=== PATIENT | female | born 1985 | race American Indian/Alaskan Native ===

== ENCOUNTER 2018-10-12 21:01 | Observation (INO) | payer OTHER ==
[2018-10-12] MEDS ORDERED: Sodium Chloride 0.9% 1,000 ML IV STA ×3 (21:54→23:43)
--- NOTE | 2018-10-12 21:57 | ED PDOC ---
Arrival/HPI <Oskar De León - Last Filed: 10/12/18 22:22> - General Historian: Patient - History of Present Illness Narrative History of Present Illness (Text): 10/12/18 21:55 Criselda Pandey is a 33 year old female, with no significant past medical history, who presents to the Emergency department complaining of 1 week history of left ear pain with left-sided frontal headache, which started this morning. Patient states the headache is gradually progressing, worsened with light, and improved when in the dark. Patient states she did not take any medication at home. Patient also reports 6 episodes of vomiting and occasional cough. Patient denies any shortness of breath and but states her chest feels a little tight. Patient also denies any abdominal pain, urinary symptoms, back pain, neck pain, or any other complaints. Symptom Onset: Gradual Symptom Course: Unchanged Activities at Onset: Light Context: Home <Briseida Hall - Last Filed: 10/13/18 01:07> - General Chief Complaint: Flu-like Symptoms Time Seen by Provider: 10/12/18 21:09 Past Medical History - Provider Review Nursing Documentation Reviewed: Yes - Psychiatric Hx Substance Use: No <Briseida Hall - Last Filed: 10/13/18 01:07> Family/Social History - Physician Review Nursing Documentation Reviewed: Yes Family/Social History: Unknown Family HX Smoking Status: Never Smoked Hx Alcohol Use: No Hx Substance Use: No <Briseida Hall - Last Filed: 10/13/18 01:07> Allergies/Home Meds <Oskar De León - Last Filed: 10/12/18 22:22> <Briseida Hall - Last Filed: 10/13/18 01:07> Allergies/Adverse Reactions: Allergies latex Allergy (Verified 10/12/18 21:31) URTICARIA Home Medications: Home Meds Medication Instructions Recorded Confirmed No Known Home Med 10/12/18 10/12/18 Review of Systems - Physician Review All systems were reviewed & negative as marked: Yes - Review of Systems Constitutional: Normal Eyes: Normal ENT: Sinus Congestion (+nasal congestion), Other (+left ear pain) Respiratory: Cough. absent: SOB Gastrointestinal: Normal. absent: Abdominal Pain, Diarrhea, Nausea, Vomiting Genitourinary Female: Normal. absent: Dysuria, Frequency, Hematuria, Urine Output Changes Musculoskeletal: Normal. absent: Back Pain, Neck Pain Skin: Normal. absent: Rash Neurological: Headache. absent: Dizziness Endocrine: Normal Hemo/Lymphatic: Normal Psychiatric: Normal <IsabelJulioBriseida T - Last Filed: 10/13/18 01:07> Physical Exam Vital Signs Temp Pulse Resp Pulse Ox 10/12/18 21:27 98.1 F 74 16 100 <Oskar De León - Last Filed: 10/12/18 22:22> Vital Signs Reviewed: Yes Vital Signs Temp Pulse Resp Pulse Ox 10/12/18 21:27 98.1 F 74 16 100 Temperature: Afebrile Blood Pressure: Normal Pulse: Regular Respiratory Rate: Normal Appearance: Positive for: Well-Appearing, Non-Toxic, Comfortable Pain Distress: None Mental Status: Positive for: Alert and Oriented X 3 - Systems Exam Head: Present: Atraumatic, Normocephalic Pupils: Present: PERRL Extroacular Muscles: Present: EOMI Conjunctiva: Present: Normal Ears: Present: Normal, NORMAL TM, Normal Canal. No: Erythema, TM Bulging, Fluid, TM Perf Mouth: Present: Moist Mucous Membranes, Normal Lips, Normal Tounge. No: Drooling, Trismus Pharnyx: Present: Other (Post-nasal drip). No: ERYTHEMA, EXUDATE, TONSILS ENLARGED, Peritonsilar Swelling, Uvular Deviation, Muffled/Hoarse Voice, S trider, Soft Palate/Uvular Edema Nose (External): Present: Atraumatic Nose (Internal): Present: Other (Nasal congestion) Neck: Present: Normal Range of Motion. No: Meningeal Signs, MIDLINE TENDERNESS, Paraspinal Tenderness, Lymphadenopathy Respiratory/Chest: Present: Clear to Auscultation, Good Air Exchange. No: Respiratory Distress, Accessory Muscle Use Cardiovascular: Present: Regular Rate and Rhythm, Normal S1, S2. No: Murmurs Abdomen: No: Tenderness, Distention, Peritoneal Signs, Rebound, Guarding Upper Extremity: Present: Normal Inspection. No: Cyanosis, Edema Lower Extremity: Present: Normal Inspection. No: Edema Neurological: Present: GCS=15, Speech Normal, Gait Normal Skin: Present: Warm, Dry, Normal Color. No: Rashes Lymphatic: No: Cervical Adenopathy Psychiatric: Present: Alert, Oriented x 3 <Azoia,Briseida T - Last Filed: 10/13/18 01:07> Medical Decision Making - Lab Interpretations Lab Results: Urine Color Yellow (YELLOW) 10/12/18 20:00 Urine Appearance Sl cloudy (CLEAR) 10/12/18 20:00 Urine pH 6.0 (4.7-8.0) 10/12/18 20:00 Ur Specific Bigelow >= 1.030 (1.005-1.035) 10/12/18 20:00 Urine Protein Negative mg/dL (<30 mg/dL) 10/12/18 20:00 Urine Glucose (UA) Negative mg/dL (NEGATIVE) 10/12/18 20:00 Urine Ketones Negative mg/dL (NEGATIVE) 10/12/18 20:00 Urine Blood Negative (NEGATIVE) 10/12/18 20:00 Urine Nitrate Negative (NEGATIVE) 10/12/18 20:00 Urine Bilirubin Negative (NEGATIVE) 10/12/18 20:00 Urine Urobilinogen 0.2 E.U./dL (<1 E.U./dL) 10/12/18 20:00 Ur Leukocyte Esterase Trace Keysha/uL (NEGATIVE) H 10/12/18 20:00 Urine RBC None /hpf (0-2) 10/12/18 20:00 Urine WBC 5 - 10 /hpf (0-6) H 10/12/18 20:00 Ur Epithelial Cells 10 - 12 /hpf (0-5) H 10/12/18 20:00 Urine Bacteria Mod /hpf (NONE) 10/12/18 20:00 - Medication Orders Current Medication Orders: Sodium Chloride (Sodium Chloride 0.9%) 1,000 mls @ 999 mls/hr IV .Q1H1M STA Stop: 10/12/18 22:54 Last Admin: 10/12/18 22:10 Dose: 999 mls/hr eMAR Start Stop Document 10/12/18 22:10 THEA (Rec: 10/12/18 22:10 THEA [id number]) Intravenous Solution Start Date 10/12/18 Start Time 22:10 End Date 10/12/18 End time 23:11 Total Infusion Time 61 Discontinued Medications Ketorolac Tromethamine (Toradol) 30 mg IVP STAT STA Stop: 10/12/18 22:10 Metoclopramide HCl (Reglan) 10 mg IVP STAT STA Stop: 10/12/18 22:10 <Oskar De León - Last Filed: 10/12/18 22:22> ED Course and Treatment: 10/12/18 21:55 Impression: 33 year old female complaining of 1 week history of left ear pain, nasal congestion, left-sided frontal headache, occasional cough, and some chest tightness. Plan: -- EKG -- Rapid influenza A/B -- CBC -- CMP -- Cardiac iso -- Urinalysis -- IV fluids -- Reassess and disposition --urine hcg; negative Progress Notes: Pt was offered CT Head, but the patient refused stating that she doesnt want the radiation. EKG: NSR sinus rhythm at 73 bpm normal axis normal intervals no ST elevations UA; + leukocytes, + bacteria, many epithelials. No urinary symptoms. rapid flu; negative cbc; wnl cmp; wnl trop; wnl pt was given toradol and reglan; after reglan patient felt anxious. pt refused benadryl. asked for her IV to be pulled. pt reassessment; pt is feeling better. vitals stable. pt is resting comfortably reading a book in the ER. pt was found to have elevated CPK in er; advised patient of rhabdomyolysis and increased risk of kidney failure or possible if not treated. Patient states she wants to call her doctor and discuss the elevated CPK with her physician. after speaking to her primary care physician she has decided to stay in the hospital. An additional liter of normal saline was given IV bolus and the patient was started on 100 mL of per hour of normal saline. pt reassessment; pt is non toxic well appearing; no distress. alert and oriented. Case was discussed with Dr. Nolen accepts observational status admission for rhabdomyolysis all aspects of this case were discussed the attending of record. impression; rhabdomyolysis admit med surg Reassessment Condition: Re-examined, Improved <Briseida Hall - Last Filed: 10/13/18 01:07> - PA / BRIM RAISER / Resident Statement SWATI has reviewed & agrees with the documentation as recorded. SWATI has examined the patient and agrees with the treatment plan. <Oskar De León - Last Filed: 10/12/18 22:22> - Scribe Statement The provider has reviewed the documentation as recorded by the Nupur Jackson Provider Scribe Attestation: All medical record entries made by the Scribe were at my direction and personally dictated by me. I have reviewed the chart and agree that the record accurately reflects my personal performance of the history, physical exam, medical decision making, and the department course for this patient. I have also personally directed, reviewed, and agree with the discharge instructions and disposition. <Briseida Hall - Last Filed: 10/13/18 01:07> Disposition/Present on Arrival <Oskar De León - Last Filed: 10/12/18 22:22> - Present on Arrival Any Indicators Present on Arrival: No History of DVT/PE: No History of Uncontrolled Diabetes: No Urinary Catheter: No History of Decub. Ulcer: No History Surgical Site Infection Following: None - Disposition Have Diagnosis and Disposition been Completed?: Yes Disposition Time: 23:30 Patient Plan: Admission <Briseida Hall - Last Filed: 10/13/18 01:07> - Disposition Diagnosis: Rhabdomyolysis Disposition: HOSPITALIZED Patient Problems: Current Active Problems Problem Status Onset Rhabdomyolysis Acute Condition: GOOD
[2018-10-12 22:13] LABS: BASO # 0.02 K/mm3 (0.0-2.0); BASO % 0.3 % (0.0-3.0); EOS # 0.1 (0.0-0.7); EOS % 1.1 % (1.5-5.0); GRAN # 4.3 (1.4-6.5); GRAN % 54.2 % (50.0-68.0); HEMOGLOBIN 11.1 g/dL (12.0-16.0); LYMPH # 3.1 (1.2-3.4); LYMPH % 38.9 % (22.0-35.0); MEAN CELL VOLUME 83.1 fl (80.0-105.0); MEAN CORPUSCULAR HEMOGLOBIN 27.5 pg (25.0-35.0); MEAN CORPUSCULAR HGB CONC 33.1 g/dl (31.0-37.0); MONO # 0.4 (0.1-0.6); MONO % 5.5 % (1.0-6.0); RBC 4.03 10^6/uL (3.5-6.1); URINE APPEARANCE SL CLOUDY (CLEAR); URINE BILIRUBIN NEGATIVE (NEGATIVE); URINE BLOOD NEGATIVE (NEGATIVE); URINE COLOR YELLOW (YELLOW); URINE GLUCOSE (UA) NEGATIVE (NEGATIVE); URINE LEUKOCYTE ESTERASE TRACE Leu/uL (NEGATIVE); URINE PROTEIN NEGATIVE mg/dL (<30 mg/dL); URINE UROBILINOGEN 0.2 E.U./dL (<1 E.U./dL); WHITE BLOOD COUNT 7.9 10^3/uL (4.5-11.0)
[2018-10-12 22:15] LABS: URINE BACTERIA MOD /hpf
[2018-10-12 22:30] LABS: ALB/GLOB RATIO 1.4 (1.1-1.8); ALBUMIN 3.9 g/dL (3.0-4.8); ALT/SGPT 38 U/L (7-56); AST/SGOT 85 U/L (14-36); BLOOD UREA NITROGEN 15 mg/dL (7-21); GFR NON-AFRICAN AMERICAN > 60
[2018-10-12] MEDS ORDERED: DiphenhydrAMINE 50 mg/ml Inj IVP STA (22:37)
[2018-10-12 22:47] LABS: TROPONIN I < 0.01 ng/mL
[2018-10-12 23:24] LABS: CK-MB 2.6 ng/mL (0.0-3.6)
[2018-10-12 23:33] LABS: LIPASE 257 U/L (23-300)
[2018-10-13 00:26] VITALS: BMI 24.4
[2018-10-13 01:15] VITALS: PULSE 73
[2018-10-13 07:50] VITALS: BP 93/56; RESP 19; TEMP 98.1; O2SAT 97
[2018-10-13 09:30] LABS: ALB/GLOB RATIO 1.3 (1.1-1.8); ALT/SGPT 40 U/L (7-56); AST/SGOT 89 U/L (14-36); BLOOD UREA NITROGEN 9 mg/dL (7-21); GFR NON-AFRICAN AMERICAN > 60
[2018-10-13] MEDS ORDERED: Sodium Chloride 0.9% 1,000 ML IV SCH (10:30)
[2018-10-13 10:36] LABS: CK-MB 2.4 ng/mL (0.0-3.6)
--- NOTE | 2018-10-13 13:24 | CP.PCM.CON ---
History of Present Illness - History of Present Illness History of Present Illness: Nephrology Consultation Note: Assessment: Stable mild rhabdomyolysis likely due to recent exercise dehydration as evident by concentrated urine anemia likely iron def Plan No acute need for renal replacement therapy at this time. renal function stable and normal. Maintain hemodynamics stable. Avoid hypotension. Monitor Input/Output, daily weights and renal function with basic metabolic panel, CPK while in hospital so far CPK level stable and renal function normal. pt asymptomatic, able to take PO. can be d/c home from renal perspective. recommend rest, increased fluid intake and repeat labs within few days as outpt Dose meds/antibiotics for normal GFR. Further work up/management as per primary team Thanks for allowing me to participate in care of your patient. Will follow patient with you. Please call if any Qs. had d/w team Dr Jeffrey Mercado Office: [phone] Chief Complaint; rhabdomyolysis Reason for consult: elevated CPK HPI: Pt is a 33 F without any known medical hx , not on any meds presented with complaints of body aches after recent physical exercise regimen she had started. also episodes of vomitting yesterday with decreased oral intake. had headache also which has resolved Denies OTC/herbal meds or NSAIDs No recent iodinated contrast exposure. No obvious episodes of low BP. pt feels well now, no complaints, usual health no hx of rhabdo in past non smoker no etoh or drugs. works as paeds RN in [employer] ROS: Cardiovascular: No chest pain. Pulmonary: No shortness of breath Gastrointestinal: denies abdominal pain No nausea. No vomiting. Genitourinary: No pain while urinating. Denies blood in urine. All other negative except as mentioned in HPI Physical Examination: General Appearance: Comfortable, in no acute respiratory distress, co-operative . Vitals reviewed and noted as below Head; Atraumatic, normocephalic ENT: no ulcers no thrush. Tongue is midline. Oropharynx: no rash or ulcers. EYES: Pupils are equal, round and reactive to light accommodation. Eye muscles and extraocular movement intact. Sclera is anicteric. Neck; supple no lymphadenopathy, no thyromegaly or bruit Lungs: Normal respiratory rate/effort. Breath sounds bilateral equal and clear Heart: Normal rate. s1s2 normal. No rub or gallop. Extremities: no edema. No varicose veins Neurological: Patient is alert, awake and oriented to person, place and time. No focal deficit. Strength bilateral appropriate and equal Skin: Warm and dry. Normal turgor. No rash. Palpitation: Normal elasticity for age Abdomen: Abdomen is soft. Bowel sounds +. There is no abdominal tenderness, no guarding/rigidity no organomegaly Psych: normal insight and normal affect/mood MSK: no joint tenderness or swelling. Digits and nails normal, no deformity : kidney or bladder not palpable Labs/imaging reviewed. Past medical history, past surgical history, family history, social history, allergy reviewed and noted as below Family hx: no hx of CKD. Rest non-contributory Past Patient History - Past Social History Smoking Status: Never Smoked - CARDIAC Hx Cardiac Disorders: No - PULMONARY Hx Respiratory Disorders: No - NEUROLOGICAL Hx Neurological Disorder: No - HEENT Hx HEENT Problems: No - RENAL Hx Chronic Kidney Disease: No - ENDOCRINE/METABOLIC Hx Endocrine Disorders: No - HEMATOLOGICAL/ONCOLOGICAL Hx Blood Disorders: No - INTEGUMENTARY Hx Dermatological Problems: No - MUSCULOSKELETAL/RHEUMATOLOGICAL Hx Falls: No - GASTROINTESTINAL Hx Gastrointestinal Disorders: No - GENITOURINARY/GYNECOLOGICAL Hx Genitourinary Disorders: No - PSYCHIATRIC Hx Substance Use: No - SURGICAL HISTORY Hx Surgeries: Yes (liposuction, ) Meds Allergies/Adverse Reactions: Allergies Allergy/AdvReac Type Severity Reaction Status Date / Time latex Allergy URTICARIA Verified 10/12/18 21:31 - Medications Medications: Current Medications Sodium Chloride (Sodium Chloride 0.9%) 1,000 mls @ 150 mls/hr IV .Q6H40M CARIN Last Admin: 10/13/18 10:32 Dose: 150 mls/hr Results - Vital Signs Recent Vital Signs: Last Vital Signs Temp 98.1 F 10/13/18 07:49 Pulse 73 10/13/18 07:49 Resp 19 10/13/18 07:49 BP 93/56 L 10/13/18 07:49 Pulse Ox 97 10/13/18 07:49 - Labs Result Diagrams: 10/12/18 20:00 10/13/18 08:40 Labs: Laboratory Results - last 24 hr 10/12/18 10/12/18 10/12/18 20:00 20:00 20:00 WBC RBC Hgb Hct MCV MCH MCHC RDW Plt Count MPV Gran % Lymph % (Auto) Perkins % (Auto) Eos % (Auto) Baso % (Auto) Gran # Lymph # (Auto) Perkins # (Auto) Eos # (Auto) Baso # (Auto) Sodium 137 Potassium 4.2 Chloride 108 H Carbon Dioxide 24 Anion Gap 9 L BUN 15 Creatinine 0.7 Est GFR ( Amer) > 60 Est GFR (Non-Af Amer) > 60 Random Glucose 94 Calcium 9.0 Total Bilirubin 0.4 AST 85 H ALT 38 Alkaline Phosphatase 54 Lactate Dehydrogenase 675 Total Creatine Kinase 5471 H CK-MB (CK-2) 2.6 CK-MB (CK-2) % Cancelled Troponin I < 0.01 Total Protein 6.7 Albumin 3.9 Globulin 2.8 Albumin/Globulin Ratio 1.4 Lipase 257 Urine Color Yellow Urine Appearance Sl cloudy Urine pH 6.0 Ur Specific Gobles >= 1.030 Urine Protein Negative Urine Glucose (UA) Negative Urine Ketones Negative Urine Blood Negative Urine Nitrate Negative Urine Bilirubin Negative Urine Urobilinogen 0.2 Ur Leukocyte Esterase Trace H Urine RBC None Urine WBC 5 - 10 H Ur Epithelial Cells 10 - 12 H Urine Bacteria Mod Influenza Typ A,B (EIA) Negative for flu a/b 10/12/18 10/13/18 20:00 08:40 WBC 7.9 RBC 4.03 Hgb 11.1 L Hct 33.5 L MCV 83.1 MCH 27.5 MCHC 33.1 RDW 14.0 Plt Count 262 MPV 10.0 Gran % 54.2 Lymph % (Auto) 38.9 H Perkins % (Auto) 5.5 Eos % (Auto) 1.1 L Baso % (Auto) 0.3 Gran # 4.30 Lymph # (Auto) 3.1 Perkins # (Auto) 0.4 Eos # (Auto) 0.1 Baso # (Auto) 0.02 Sodium 136 Potassium 4.3 Chloride 108 H Carbon Dioxide 22 Anion Gap 11 BUN 9 Creatinine 0.6 L Est GFR ( Amer) > 60 Est GFR (Non-Af Amer) > 60 Random Glucose 93 Calcium 9.0 Total Bilirubin 0.4 AST 89 H ALT 40 Alkaline Phosphatase 60 Lactate Dehydrogenase Total Creatine Kinase 5018 H CK-MB (CK-2) 2.4 CK-MB (CK-2) % Cancelled Troponin I Total Protein 7.0 Albumin 4.0 Globulin 3.0 Albumin/Globulin Ratio 1.3 Lipase Urine Color Urine Appearance Urine pH Ur Specific Gobles Urine Protein Urine Glucose (UA) Urine Ketones Urine Blood Urine Nitrate Urine Bilirubin Urine Urobilinogen Ur Leukocyte Esterase Urine RBC Urine WBC Ur Epithelial Cells Urine Bacteria Influenza Typ A,B (EIA)
--- NOTE | 2018-10-13 22:19 | CARD ---
APPROVED REPORT Date of service: 10/12/2018 EKG Measurement Heart [id number] <Conclusion> Normal sinus rhythm Low voltage QRS Borderline ECG
--- NOTE | 2018-10-14 01:32 | HP ---
DATE OF EXAM: 10/13/2018 HISTORY OF PRESENT ILLNESS: A 33-year-old female who came in, history was taken from the patient herself, body aches, pains all over and also history of exercise heavily after a long period of not exercising. She states the body hurts. She also mentions that she did have some nasal congestions and some sinus headaches which seems controlled with medications and feel better already with it. She denies any fever, any chest pain, any short of breath. The patient was evaluated in the emergency room and it was found that CPK 5471. The patient was admitted for that particular reason with rhabdomyolysis for observation. PAST MEDICAL HISTORY: No other medical problems. SOCIAL HISTORY: The patient is , with children. She does not smoke or drink. 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 REVIEW OF SYSTEMS: She does not complain of any pain. When I saw her, she denied any pain, any back pain, shoulder pain just only recent history of muscle pains all over. Denied any fever. Denied chest pain, nausea, vomiting, or diarrhea. No chills. No other complaints. No burning with urination. FAMILY HISTORY: Noncontributory. PHYSICAL EXAMINATION: VITAL SIGNS: Temperature is 98, heart rate is 73 and regular, blood pressure is 109/74, respirations 18 and unlabored, and saturation on room air 100%. HEAD AND NECK: Normal. No JVD. No thyromegaly. CHEST: Clear bilaterally. No wheezing. CARDIAC: First sound and second sound normal. No murmur, rub, or gallop. ABDOMEN: Soft and nontender. EXTREMITIES: No edema. No calf tenderness. Good pulses. NEUROLOGIC: The patient is awake, alert, and oriented x3. Moves all extremities. She is sitting comfortably, playing with the computer and has a book in front of her. LABORATORY STUDY: Shows the following; sodium 137, potassium 4.2, chloride 107, bicarb 24, BUN 15, and creatinine 0.7. Liver function test seems normal except AST slightly elevated at 85. Total creatinine kinase 5471. CBC; white count 7.9, hemoglobin 11.1, hematocrit 33.5, and platelets 262. UA shows 5 to 10 WBCs and a lot epithelial cells 10 to 12. Serology for influenza was negative. IMPRESSION AND PLAN: Acute rhabdomyolysis, mild. We will admit the patient for observation. She got already few liters of IV fluid. We will maintain IV fluid 150 mL per hour. The patient tried to with IV. We recommend her to hold off on that and she wants to go home. Repeat CPK went down. The patient is encouraged if she wants to go home she has to drink p.o. fluids. I gave her my number, my card to follow up as outpatient. Consultation by wet suit gluer, Dr. Jeffrey Mercado who has seen the patient and he agreed. I recommend to discharge the patient on p.o. fluids. We will continue followup as outpatient. ADMITTING DIAGNOSIS: Acute rhabdomyolysis and plan IV fluids. Same time, the patient for observation, was discharged home to be followed up as outpatient. Marvin Nolen MD
== END 2018-10-13 14:40 | disposition home or self-care (01) ==
LOC: ED 21:01 → ERH 23:46 → 3RNO 10-13 00:15
PROVIDERS: ADMIT Internal Medicine; ATTEND Internal Medicine
DX: M62.82 Rhabdomyolysis (principal); E86.0 Dehydration; D50.9 Iron deficiency anemia, unspecified; Z91.040 Latex allergy status
CPT/HCPCS: 36415; 80053; 81001; 81025; 82550; 82553; 83615; 83690; 84484; 85025; 87086; 87804; 93005; 96360; 96361; 96374; 96375; 99285; G0378; J1885; J2765; J7030; J7040

== ENCOUNTER 2018-12-28 18:11 | Emergency (ER) | payer BC, OTHER ==
[2018-12-28 18:12] VITALS: BMI 24.4
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
[2018-12-28 18:58] VITALS: BP 116/76; PULSE 82; RESP 16; TEMP 99.2; O2SAT 98
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
== END 2018-12-28 21:33 | disposition left against medical advice (07) ==
LOC: ED 18:11
DX: S02.5XXA Fracture of tooth (traumatic), initial encounter for closed fracture (principal); S01.511A Laceration without foreign body of lip, initial encounter; S50.12XA Contusion of left forearm, initial encounter; S60.211A Contusion of right wrist, initial encounter; S70.11XA Contusion of right thigh, initial encounter; Y04.0XXA Assault by unarmed brawl or fight, initial encounter; R07.81 Pleurodynia; M79.632 Pain in left forearm